=== PATIENT | male | born 1965 | race African-American/Black ===

== ENCOUNTER 2017-10-09 23:05 | Emergency (ER) | payer MEDICARE ==
--- NOTE | 2017-10-09 23:49 | CT ---
BRAIN CT WITHOUT IV CONTRAST: 10/09/17 HISTORY: 52-year-old male with altered mental status and headache. No focal mass or midline shift. There is some encephalomalacic changes in the left occipital lobe, ev idence for old infarct or other old insult. No mass or midline shift. No acute hemorrhage. 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 No mass or bleed or other acute process. POS: [facility]
[2017-10-10] MEDS ORDERED: Sterile Water 10 ML ONE (00:21)
[2017-10-10] MEDS ORDERED: Lorazepam 2 MG/ML VIAL ONE ×2 (00:21→01:03)
[2017-10-10] MEDS ORDERED: Ziprasidone 20 MG VIAL ONE (00:21)
[2017-10-10] MEDS ORDERED: diphenhydrAMINE 50 MG/ML VIAL ONE (01:02)
[2017-10-10] MEDS ORDERED: Haloperidol Lactate 5 MG/ML VIAL ONE (01:02)
[2017-10-10 01:30] LABS: #Eosinphils 0.2 thou/uL (0.0-0.7); #Monocytes 0.6 thou/uL (0.11-0.59); #Neutrophils 4.5 thou/uL (1.40-6.50); %Basophils 0.6 % (0.0-1.0); %Eosinophils 2.5 % (0.0-10.0); %Lymphocytes 27.5 % (21.0-51.0); %Monocytes 8.5 % (0.0-10.0); Hematocrit 39.5 % (42.0-52.0); Mean Platelet Volume 8.3 fL (7.4-10.4); Red Blood Cell (RBC) Count 4.59 mill/uL (4.70-6.10); White Blood Cell (WBC) Count 7.4 thou/uL (4.8-10.8)
[2017-10-10 01:48] LABS: Acetaminophen Less than 6.0 mcg/mL (10.0-30.0); CK (CPK) 106 U/L (30-200); Salicylate Less than 8.0 mg/dL (15.0-30.0)
[2017-10-10 01:49] LABS: ALT (SGPT) 22 U/L (8-55); AST (SGOT) 12 U/L (5-34); Alkaline Phosphatase 119 U/L (40-150); Anion Gap 12 mmol/L (10-20); BUN (Urea Nitrogen) 14 mg/dL (8.4-25.7); Bilirubin, Total 0.4 mg/dL (0.2-1.2); Calc. Creatinine Clearance 0 mL/min (70-130); Calcium 10.1 mg/dL (7.8-10.44); Carbon Dioxide 27 mmol/L (22-29); Chloride 101 mmol/L (98-107); Estimated GFR-MDRD 70; Globulin 3.8 g/dL (2.4-3.5); Protein, Total 7.8 g/dL (6.0-8.3)
== END 2017-10-10 05:02 | disposition home or self-care (01) ==
LOC: ERS 23:05
DX: F20.9 Schizophrenia, unspecified (principal); I10 Essential (primary) hypertension; E11.9 Type 2 diabetes mellitus without complications; E78.5 Hyperlipidemia, unspecified; Z79.899 Other long term (current) drug therapy; Z79.84 Long term (current) use of oral hypoglycemic drugs; Z79.82 Long term (current) use of aspirin
CPT/HCPCS: 70450; 80053; 80307; 82550; 85025; 93005; 96372; A4216; J1200; J1630; J2060; J3486

== ENCOUNTER 2017-10-19 23:03 | Emergency (ER) | payer MEDICARE, OTHER ==
[2017-10-20] MEDS ORDERED: risperiDONE 1 MG TAB ONE (00:02)
== END 2017-10-20 00:51 ==
LOC: ERS 23:03
DX: F20.9 Schizophrenia, unspecified (principal); I12.9 Hypertensive chronic kidney disease with stage 1 through stage 4 chronic kidney disease, or unspecified chronic kidney disease; E11.22 Type 2 diabetes mellitus with diabetic chronic kidney disease; N18.9 Chronic kidney disease, unspecified; F17.210 Nicotine dependence, cigarettes, uncomplicated; Z79.4 Long term (current) use of insulin; Z79.899 Other long term (current) drug therapy
CPT/HCPCS: 99406

== ENCOUNTER 2017-12-23 09:48 | Inpatient (IN) | payer MEDICARE ==
[2017-12-23] MEDS ORDERED: Lorazepam 1 MG TAB ONE (11:52)
[2017-12-23] MEDS ORDERED: Haloperidol 1 MG TAB ONE (11:53)
[2017-12-23 13:48] LABS: #Eosinphils 0.1 thou/uL (0.0-0.7); #Lymphocytes 1.7 thou/uL (1.20-3.40); #Monocytes 0.5 thou/uL (0.11-0.59); #Neutrophils 4.7 thou/uL (1.40-6.50); %Basophils 0.3 % (0.0-1.0); %Eosinophils 1.8 % (0.0-10.0); %Lymphocytes 24.1 % (21.0-51.0); %Monocytes 7.4 % (0.0-10.0); %Neutrophils 66.4 % (42.0-75.0); Hemoglobin 13.4 g/dL (14.0-18.0); Mean Corpuscular HGB CONC 32.9 g/dL (32.0-36.0); Mean Corpuscular Hemoglobin 27.7 pg (27.0-31.0); Mean Corpuscular Volume 84.1 fl (80.0-94.0); Mean Platelet Volume 8.8 fL (7.4-10.4); Platelet Count 240 thou/uL (130-400); Red Blood Cell (RBC) Count 4.84 mill/uL (4.70-6.10); White Blood Cell (WBC) Count 7.1 thou/uL (4.8-10.8)
[2017-12-23 14:17] LABS: ALT (SGPT) 13 U/L (8-55); AST (SGOT) 10 U/L (5-34); Albumin 4.2 g/dL (3.5-5.0); Alkaline Phosphatase 140 U/L (40-150); Anion Gap 14 mmol/L (10-20); BUN (Urea Nitrogen) 8 mg/dL (8.4-25.7); Bilirubin, Total 0.5 mg/dL (0.2-1.2); Calc. Creatinine Clearance 0 mL/min (70-130); Calcium 9.6 mg/dL (7.8-10.44); Carbon Dioxide 24 mmol/L (22-29); Chloride 94 mmol/L (98-107); Estimated GFR-MDRD 72; Globulin 3.4 g/dL (2.4-3.5); Potassium 3.9 mmol/L (3.5-5.1); Protein, Total 7.6 g/dL (6.0-8.3); Sodium 128 mmol/L (136-145)
[2017-12-23 14:23] LABS: Acetaminophen Less than 6.0 mcg/mL (10.0-30.0); Alcohol Less than 10 mg/dL (Less than 10); Salicylate Less than 8.0 mg/dL (15.0-30.0)
[2017-12-23 14:27] LABS: Glucose 564 mg/dL (70-105)
[2017-12-23 14:28] LABS: Bilirubin Negative (Negative); Blood, Urine Negative (Negative); Clarity CLEAR (Clear); Glucose, Urine (Dipstick) >=1000 mg/dL (Negative); Leukocyte Negative (Negative); Nitrite Negative (Negative); Protein, Urine (Dipstick) Negative (Neg-Trace); Specific Gravity, Urine 1.017 (1.002-1.036); Urobilinogen 0.2 mg/dL (0.2-1.0)
[2017-12-23 14:39] LABS: Amphetamine Not Detected (NotDetected); Barbiturates Screen Not Detected (NotDetected); Benzodiazepine Screen Not Detected (NotDetected); Cocaine Metabolite Screen Not Detected (NotDetected); Medtox Control Line Valid? VALID (VALID); Medtox Reader # READER 1; Methadone Not Detected (NotDetected); Methamphetamine Not Detected (NotDetected); Opiate Screen Not Detected (NotDetected); Oxycodone Screen Not Detected (NotDetected); Phencyclidine (PCP) Not Detected (NotDetected); THC/Cannabinoid Screen Not Detected (NotDetected); Tricyclic Screen Not Detected (NotDetected)
[2017-12-23] MEDS ORDERED: Insulin Regular 300 UNITS/3 ML VIAL ONE (15:30)
[2017-12-23] MEDS ORDERED: Dextrose 50% Abboject 50 ML SYRINGE IVP PRN ×2 (20:41→22:19)
[2017-12-23] MEDS ORDERED: Dextrose 5% in Water 1,000 ML IV PRN ×2 (20:41→22:19)
[2017-12-23 21:31] VITALS: BMI 33.0
[2017-12-23] MEDS: Sodium Chloride 0.9% 1,000 ML IV SCH (21:40)
[2017-12-23] MEDS ORDERED: Atorvastatin Calcium 40 MG TAB PO SCH (22:15)
[2017-12-23] MEDS ORDERED: HumaLOG 300 UNITS/3 ML VIAL SC PRN (22:19)
[2017-12-23] MEDS ORDERED: Haloperidol 1 MG TAB PO SCH (22:30)
[2017-12-23] MEDS ORDERED: busPIRone HCl 5 MG TAB PO SCH (22:30)
[2017-12-23] MEDS ORDERED: Donepezil HCl 5 MG TAB PO SCH (22:30)
[2017-12-23] MEDS ORDERED: Aripiprazole 10 MG TAB PO SCH (22:30)
--- NOTE | 2017-12-23 22:34 | HP ---
DATE OF ADMISSION: 12/23/2017 CHIEF COMPLAINT: Altered mental status, wandering and elevated blood sugar. HISTORY OF PRESENT ILLNESS: Mr. Joseph is a 52-year-old -[place] male with past medical his tory of paranoid schizophrenia, hypertension, diabetes mellitus who was found outside of the retirement, he broke the lock of the gate and went onto the road. The patient's retirement staff followe d with him and brought him back to the retirement. The patient did not want to get into the [facility] at all. The patient was also being very confrontational and very uncooperative, so nursing [facility] staff called the EMS for possible transfer to an inpatient psych. The patient was sent to the [facility] room in [place]. In the ER, the patient was evaluated. His lab work showed markedly eleva brad blood sugar of more than 500, so the patient is admitted for elevation of blood sugar as well as behavioral problems. The patient received Haldol and Ativan to control his combative behavior and wa s given insulin 10 units and start on sliding scale. He is being admitted to the hospital for contro l of blood sugar Once he is stabilized, he will be evaluated by [facility] for inpatient psych. PAST MEDICAL HISTORY: 1. Diabetes mellitus. 2. Paranoid schizophrenia. 3. Conversant disorder with seizures. 4. Gastroesophageal reflux disease. 5. Psychotic disorder with delusions. 6. Anxiety disorder. 7. Hypertension. 8. Hyperlipidemia. 9. Ataxic gait. PAST SURGICAL HISTORY: Nothing significant. CURRENT MEDICATIONS: The patient is on amlodipine 10 mg daily, aspirin 81 mg daily, atorvastatin 40 mg daily, Depakote 125 mg two 3 times a day, Flomax 0.4 mg daily, metformin 850 b.i.d., Thiamine chlo ride daily, omeprazole 20 mg daily, Risperdal 1 mg b.i.d., Abilify 10 mg at bedtime, Levemir FlexPen 15 units daily, insulin sliding scale, Seroquel 300 mg at bedtime, Namenda 10 mg b.i.d., haloperidol 2 mg 3 times daily, Aricept 5 mg daily, BuSpar 5 mg b.i.d. ALLERGIES: No known drug allergies. FAMILY HISTORY: Nothing of interest. SOCIAL HISTORY: Patient lives at [facility]. No history of smoking. No history of alcoho l intake. REVIEW OF SYSTEMS: Cardiovascular: No chest pain or shortness of breath. Respiratory: No fever or cough. Gastrointestinal: No nausea, vomiting, abdominal pain. Genitourinary: No dysuria or hemat uria. Central nervous system: No headache, no dizziness. PHYSICAL EXAMINATION: GENERAL: The patient is awake, alert, but not oriented. VITAL SIGNS: Temperature 98, pulse 84, respirations 20, blood pressure 120/80. HEENT: Head is normocephalic, atraumatic. Pupils equal and reactive to light. Nasopharynx is pink and moist. NECK: Supple. No JVD. LUNGS: Bilateral air entry present, no rales, no rhonchi. HEART: S1, S2 regular. ABDOMEN: Soft, no distention, no tenderness. Normal bowel sounds present. RECTAL: Deferred. CENTRAL NERVOUS SYSTEM: The patient is alert, awake, not oriented. Motor system power 4/5 in all ex tremities. Deep tendon reflexes 2+ bilaterally. Sensory intact. Plantars are downgoing. LABORATORY DATA AND X-RAY FINDINGS: CBC shows WBC 7.1, hemoglobin 13, hematocrit 40, platelets 240. Metabolic panel: Sodium 128, potassium 3.9, chloride 94, CO2 of 24, BUN 8, creatinine 1.2, glucose 564. Urinalysis negative. Urine drug screen negative. EKG, chest x-ray not done. ASSESSMENT: 1. Uncontrolled diabetes mellitus. 2. Paranoid schizophrenia. 3. Psychosis with combative behavior. 4. Hypertension. 5. Hyperlipidemia. 6. Gastroesophageal reflux disease. 7. Seizure disorder. PLAN: 1. Vital signs q.4 hours. 2. Activity as tolerated. 3. Allergies: No known drug allergies. 4. IV fluids normal saline at 80 mL per hour. 5. ADA diet. 6. Accu-Chek a.c. and at bedtime. 7. Sliding scale moderate with regular insulin. 8. Continue retirement medication. 9. Once patient is stable, he will be evaluated by [facility].
[2017-12-23] MEDS: Insulin Regular 300 UNITS/3 ML VIAL SC PRN (23:03)
[2017-12-24] MEDS: Insulin Regular 300 UNITS/3 ML VIAL SC PRN ×4 (06:25→22:17)
[2017-12-24] MEDS: Aspirin 81 mg Enteric Coated Tablet PO SCH (08:56)
[2017-12-24] MEDS: Tamsulosin HCl 0.4 MG CAP PO SCH (08:56)
[2017-12-24] MEDS: busPIRone HCl 5 MG TAB PO SCH ×2 (08:56→20:10)
[2017-12-24] MEDS: metFORMIN 850 MG TAB PO SCH ×2 (08:56→16:39)
[2017-12-24] MEDS: Amlodipine 10 MG TAB PO SCH (08:56)
[2017-12-24] MEDS: Haloperidol 1 MG TAB PO SCH ×3 (08:57→20:11)
[2017-12-24] MEDS: Sodium Chloride 0.9% 1,000 ML IV SCH ×2 (08:59→20:12)
[2017-12-24] MEDS ORDERED: Insulin Detemir 100 UNITS/ML 15 UNITS in Pre-Filled Syringe 1 EACH SC SCH (09:00)
[2017-12-24] MEDS: Acetaminophen 500 MG TAB PO PRN (11:37)
[2017-12-24] MEDS ORDERED: Insulin Detemir 100 UNITS/ML 10 UNITS in Pre-Filled Syringe 1 EACH SC SCH (19:00)
[2017-12-24] MEDS: Aripiprazole 10 MG TAB PO SCH (20:09)
[2017-12-24] MEDS: Atorvastatin Calcium 40 MG TAB PO SCH (20:10)
[2017-12-24] MEDS: Donepezil HCl 5 MG TAB PO SCH (20:11)
[2017-12-25 04:39] LABS: Hemoglobin A1c 11.9 % (4.0-6.0)
[2017-12-25 04:40] LABS: Anion Gap 12 mmol/L (10-20); BUN (Urea Nitrogen) 10 mg/dL (8.4-25.7); Calc. Creatinine Clearance 110 mL/min (70-130); Calcium 9.6 mg/dL (7.8-10.44); Carbon Dioxide 26 mmol/L (22-29); Chloride 100 mmol/L (98-107); Estimated GFR-MDRD 84; Glucose 369 mg/dL (70-105); Potassium 4.1 mmol/L (3.5-5.1); Sodium 134 mmol/L (136-145)
[2017-12-25] MEDS: Insulin Regular 300 UNITS/3 ML VIAL SC PRN ×2 (05:24→11:42)
[2017-12-25] MEDS: Tamsulosin HCl 0.4 MG CAP PO SCH (08:39)
[2017-12-25] MEDS: Haloperidol 1 MG TAB PO SCH ×3 (08:39→19:52)
[2017-12-25] MEDS: metFORMIN 500 MG TAB PO SCH ×2 (08:39→17:47)
[2017-12-25] MEDS: Aspirin 81 mg Enteric Coated Tablet PO SCH (08:39)
[2017-12-25] MEDS: Amlodipine 10 MG TAB PO SCH ×2 (08:40→17:55)
[2017-12-25] MEDS: busPIRone HCl 5 MG TAB PO SCH ×2 (08:41→19:53)
[2017-12-25] MEDS ORDERED: Insulin Detemir 100 UNITS/ML 25 UNITS in Pre-Filled Syringe 1 EACH SC SCH (09:00)
[2017-12-25] MEDS: Sodium Chloride 0.9% 1,000 ML IV SCH ×2 (11:42→22:54)
[2017-12-25] MEDS: HumaLOG 300 UNITS/3 ML VIAL SC SCH (17:48)
[2017-12-25] MEDS: Atorvastatin Calcium 40 MG TAB PO SCH (19:53)
[2017-12-25] MEDS: Aripiprazole 10 MG TAB PO SCH (19:53)
[2017-12-25] MEDS: Donepezil HCl 5 MG TAB PO SCH (19:54)
[2017-12-26] MEDS: busPIRone HCl 5 MG TAB PO SCH ×2 (08:07→21:27)
[2017-12-26] MEDS: metFORMIN 500 MG TAB PO SCH ×2 (08:07→17:22)
[2017-12-26] MEDS: Amlodipine 10 MG TAB PO SCH (08:08)
[2017-12-26] MEDS: Haloperidol 1 MG TAB PO SCH ×3 (08:08→21:27)
[2017-12-26] MEDS: Tamsulosin HCl 0.4 MG CAP PO SCH (08:08)
[2017-12-26] MEDS: Aspirin 81 mg Enteric Coated Tablet PO SCH (08:08)
[2017-12-26] MEDS: HumaLOG 300 UNITS/3 ML VIAL SC SCH ×3 (08:09→17:22)
[2017-12-26] MEDS: Insulin Detemir 100 UNITS/ML 35 UNITS in Pre-Filled Syringe 1 EACH SC SCH (08:10)
[2017-12-26] MEDS: Sodium Chloride 0.9% 1,000 ML IV SCH (11:45)
[2017-12-26] MEDS: Donepezil HCl 5 MG TAB PO SCH (21:27)
[2017-12-26] MEDS: Atorvastatin Calcium 40 MG TAB PO SCH (21:27)
[2017-12-26] MEDS: Aripiprazole 10 MG TAB PO SCH (21:27)
[2017-12-27] MEDS: HumaLOG 300 UNITS/3 ML VIAL SC SCH ×3 (09:20→16:42)
[2017-12-27] MEDS: Amlodipine 10 MG TAB PO SCH (09:21)
[2017-12-27] MEDS: Aspirin 81 mg Enteric Coated Tablet PO SCH (09:21)
[2017-12-27] MEDS: metFORMIN 500 MG TAB PO SCH ×2 (09:21→19:49)
[2017-12-27] MEDS: busPIRone HCl 5 MG TAB PO SCH ×2 (09:21→19:49)
[2017-12-27] MEDS: Tamsulosin HCl 0.4 MG CAP PO SCH (09:21)
[2017-12-27] MEDS: Haloperidol 1 MG TAB PO SCH ×3 (09:22→19:50)
[2017-12-27] MEDS: Insulin Detemir 100 UNITS/ML 35 UNITS in Pre-Filled Syringe 1 EACH SC SCH (09:22)
[2017-12-27] MEDS ORDERED: Insulin Detemir 100 UNITS/ML 10 UNITS in Pre-Filled Syringe 1 EACH SC SCH (12:15)
[2017-12-27] MEDS: Aripiprazole 10 MG TAB PO SCH (19:49)
[2017-12-27] MEDS: Donepezil HCl 5 MG TAB PO SCH (19:49)
[2017-12-27] MEDS: Atorvastatin Calcium 40 MG TAB PO SCH (19:49)
[2017-12-28] MEDS: Amlodipine 10 MG TAB PO SCH (08:17)
[2017-12-28] MEDS: busPIRone HCl 5 MG TAB PO SCH ×2 (08:17→20:49)
[2017-12-28] MEDS: Tamsulosin HCl 0.4 MG CAP PO SCH (08:18)
[2017-12-28] MEDS: HumaLOG 300 UNITS/3 ML VIAL SC SCH ×3 (08:18→17:29)
[2017-12-28] MEDS: Aspirin 81 mg Enteric Coated Tablet PO SCH (08:18)
[2017-12-28] MEDS: metFORMIN 500 MG TAB PO SCH ×2 (08:18→17:29)
[2017-12-28] MEDS: Haloperidol 1 MG TAB PO SCH ×3 (08:19→20:49)
[2017-12-28] MEDS ORDERED: Insulin Detemir 100 UNITS/ML 50 UNITS in Pre-Filled Syringe 1 EACH SC SCH (09:00)
[2017-12-28] MEDS ORDERED: Insulin Detemir 100 UNITS/ML 45 UNITS in Pre-Filled Syringe 1 EACH SC SCH (09:00)
[2017-12-28] MEDS ORDERED: Insulin Detemir 100 UNITS/ML 10 UNITS in Pre-Filled Syringe 1 EACH SC SCH (18:15)
[2017-12-28] MEDS: Acetaminophen 500 MG TAB PO PRN (20:48)
[2017-12-28] MEDS: Atorvastatin Calcium 40 MG TAB PO SCH (20:49)
[2017-12-28] MEDS: Donepezil HCl 5 MG TAB PO SCH (20:49)
[2017-12-28] MEDS: Aripiprazole 10 MG TAB PO SCH (20:49)
[2017-12-29] MEDS: Aspirin 81 mg Enteric Coated Tablet PO SCH (08:38)
[2017-12-29] MEDS: metFORMIN 500 MG TAB PO SCH (08:39)
[2017-12-29] MEDS: Haloperidol 1 MG TAB PO SCH ×2 (08:39→14:32)
[2017-12-29] MEDS: busPIRone HCl 5 MG TAB PO SCH (08:39)
[2017-12-29] MEDS: Tamsulosin HCl 0.4 MG CAP PO SCH (08:39)
[2017-12-29] MEDS: HumaLOG 300 UNITS/3 ML VIAL SC SCH ×2 (08:40→12:03)
[2017-12-29] MEDS: Amlodipine 10 MG TAB PO SCH (08:44)
[2017-12-29] MEDS ORDERED: Insulin Detemir 100 UNITS/ML 55 UNITS in Pre-Filled Syringe 1 EACH SC SCH (09:00)
[2017-12-29 09:21] VITALS: TEMP 98.2
[2017-12-29] MEDS ORDERED: Insulin Detemir 100 UNITS/ML 5 UNITS in Pre-Filled Syringe 1 EACH SC SCH (10:15)
[2017-12-29 16:31] VITALS: BP 116/71
[2017-12-30] MEDS ORDERED: Insulin Detemir 100 UNITS/ML 60 UNITS in Pre-Filled Syringe 1 EACH SC SCH (09:00)
== END 2017-12-29 16:30 | DRG 638 ==
LOC: ERS 09:48 → T4-B 15:15
PROVIDERS: ADMIT Internal Medicine; ATTEND Internal Medicine
DX: E11.65 Type 2 diabetes mellitus with hyperglycemia (principal); F20.0 Paranoid schizophrenia; I10 Essential (primary) hypertension; F44.5 Conversion disorder with seizures or convulsions; K21.9 Gastro-esophageal reflux disease without esophagitis; F41.9 Anxiety disorder, unspecified; E78.5 Hyperlipidemia, unspecified; R27.0 Ataxia, unspecified; Z79.82 Long term (current) use of aspirin; Z79.4 Long term (current) use of insulin; Z86.73 Personal history of transient ischemic attack (TIA), and cerebral infarction without residual deficits; F17.210 Nicotine dependence, cigarettes, uncomplicated
CPT/HCPCS: 36415; 36416; 80048; 80053; 80306; 80307; 81003; 83036; 84443; 85025; 99285; J1815